=== PATIENT | male | born 1950 | race Two or more races ===

== ENCOUNTER 2024-06-13 05:55 | Day surgery (SDC) | payer OTHER ==
[2024-06-08 13:38] VITALS: BP 150/95
[~2024-06-13] VITALS: Ht 170.2 cm; Wt 61.2 kg
[2024-06-13] MEDS ORDERED: ENOXAPARIN SODIUM 40 MG/0.4 ML SYRINGE SUBCUTANEO ONE (09:58)
[2024-06-13] MEDS ORDERED: METRONIDAZOLE/SODIUM CHLORIDE 500 MG/100 ML PIGGYBACK IV ONE (09:58)
[2024-06-13] MEDS ORDERED: CEFTRIAXONE SODIUM 2,000 MG VIAL ONE (09:58)
[2024-06-13] MEDS ORDERED: CELEBREX200MG PO (12:23)
[2024-06-13] MEDS ORDERED: PERCOCET 5-3251 EACH PO (12:23)
[2024-06-13] MEDS ORDERED: NEURONTIN300 MG PO (12:23)
[2024-06-13] MEDS ORDERED: POLY119PG PO (12:23)
[2024-06-13] MEDS ORDERED: MORPHINE SULFATE 2 MG/ML CARTRIDGE IV ONE (13:05)
== END 2024-06-13 15:00 | disposition home or self-care (01) ==
LOC: CIR.AMB 05:55
PROVIDERS: ATTEND Surgery
DX: K40.90 Unilateral inguinal hernia, without obstruction or gangrene, not specified as recurrent (principal)
CPT/HCPCS: 49650; C1781